=== PATIENT | male | born 1985 | race Caucasian/White ===

== ENCOUNTER 2017-05-21 05:54 | Emergency (ER) | payer OTHER ==
[2017-05-21] MEDS ORDERED: Ketorolac Tromethamine 30 MG/ML VIAL ONE (06:27)
[2017-05-21 06:39] LABS: Amphetamine Not Detected (NotDetected); Barbiturates Screen Not Detected (NotDetected); Benzodiazepine Screen Not Detected (NotDetected); Cocaine Metabolite Screen Not Detected (NotDetected); Medtox Control Line Valid? VALID (VALID); Methadone Not Detected (NotDetected); Methamphetamine Not Detected (NotDetected); Opiate Screen Not Detected (NotDetected); Oxycodone Screen Not Detected (NotDetected); Phencyclidine (PCP) Not Detected (NotDetected); THC/Cannabinoid Screen Not Detected (NotDetected); Tricyclic Screen Not Detected (NotDetected)
[2017-05-21] MEDS ORDERED: HYDROcodone/Acetaminophen 10/325 mg Tablet ONE (07:05)
--- NOTE | 2017-05-21 11:12 | RAD ---
RIGHT FOOT THREE VIEWS 05/21/2017 FINDINGS: No acute fracture is appreciated. Old trauma to the distal second metatarsals is present, along wit h some tiny metallic flecks in the soft tissues in the vicinity, presumably related to the trauma. There is a small, opaque damion adjacent to the proximal phalanx of the fifth toe that is probably lo ngstanding as well. A bone island in the distal phalanx of the great toe is of no concern. Overall , no acute bony findings were appreciated at this time. IMPRESSION: Evidence of old trauma but no acute bony finding. POS: HOME
== END 2017-05-21 07:27 | disposition home or self-care (01) ==
LOC: BURERS 05:54
DX: S90.31XA Contusion of right foot, initial encounter (principal); W20.8XXA Other cause of strike by thrown, projected or falling object, initial encounter
CPT/HCPCS: 80306; 96374; J1885